=== PATIENT | male | born 1955 | race African-American/Black ===

== ENCOUNTER 2018-09-12 13:16 | Inpatient (IN) | payer MEDICAID ==
[~2018-09-12] VITALS: Ht 182.9 cm; Wt 99.8 kg
[~2018-09-12 13:16] MED LIST: [UNRECOGNIZED DRUG - REMARK]
[2018-09-12] MEDS ORDERED: METHYLPREDNISOLONE SOD SUCC 125 MG/2 ML VIAL IV STA (13:54)
[2018-09-12] MEDS ORDERED: IPRATROPIUM BROMIDE (0.02%) 0.5MG/2.5ML NEB HHN STA (13:54)
[2018-09-12] MEDS ORDERED: CEFTRIAXONE 1 G PREMIX 50 ML IV ONE (14:00)
[2018-09-12] MEDS ORDERED: SODIUM CHLORIDE 0.9% 1000ML BAG (SEPSIS BOLUS) IV ONE (14:00)
[2018-09-12] MEDS: ALBUTEROL (0.083%) 2.5MG/3ML NEB HHN SCH (14:20)
[2018-09-12 14:21] LABS: BASOPHILS % 0.7 % (0.0-2.0); HEMOGLOBIN. 11.1 g/dL (14.0-18.0); LYMPHOCYTES % 10.6 % (20.0-50.0); MEAN CORPUSCULAR HEMOGLOBIN 27.1 pg (28.0-32.0); MEAN CORPUSCULAR VOLUME 80.5 fL (80.0-94.0); MEAN PLATELET VOLUME 7.9 fl (7.4-10.4); MONOCYTES % 11.9 % (2.0-8.0); NEUTROPHILS % 76.8 % (40.0-76.0); PLATELET 258 x1000/uL (130-400); RED BLOOD CELL COUNT 4.09 mill/uL (4.7-6.1); RED CELL DISTRIBUTION WIDTH 15.8 % (11.6-14.6)
[2018-09-12] MEDS ORDERED: ALBUTEROL (0.5%) 2.5MG/0.5ML NEB HHN ONE (14:21)
[2018-09-12 14:27] LABS: PROTHROMBIN TIME 9.9 sec (9.6-11.0)
[2018-09-12 14:31] LABS: BG BASE EXCESS 4.8 mmol/L (-2.0-2.0); BG CARBOXYHEMOGLOBIN 0.3 % (0.5-1.5); BG DEOXYHEMOGLOBIN 11.1 % (0.0-5.0); BG FRACTION INSPIRED OXYGEN 40; BG HCO3 ACT 27.8 mmol/L (22.0-26.0); BG METHEMOGLOBIN 0.6 % (0.0-1.5); BG OXYGEN SATURATION 88.8 % (92.0-98.5); BG PCO2 35.7 mmHg (35.0-45.0); BG PO2 53.1 mmHg (75.0-100.0); BG SAMPLE SITE RIGHT RADIAL; BG VENT MODE NASAL CANNULA
[2018-09-12 14:41] LABS: CHLORIDE 90 mEq/L (98-107)
[2018-09-12] MEDS ORDERED: HYDROCODONE/ACETAMINOPHEN 5/325MG TABLET PO PRN (17:15)
[2018-09-12] MEDS ORDERED: AZITHROMYCIN 500 MG in DEXT 5% WATER 250 ML IV SCH ×2 (17:15→20:00)
[2018-09-12] MEDS ORDERED: IPRATROPIUM/ALBUTEROL 0.5-3(2.5)MG/3ML NEB INH PRN (17:15)
[2018-09-12] MEDS ORDERED: ACETAMINOPHEN 325MG TABLET PO PRN (17:15)
[2018-09-12] MEDS ORDERED: DIPHENHYDRAMINE 50MG/ML VIAL IV PRN (17:15)
[2018-09-12] MEDS ORDERED: GUAIFENESIN 200MG/10ML SUGAR FREE UDC PO PRN (17:15)
[2018-09-12] MEDS ORDERED: LEVOFLOXACIN 500MG PREMIX 100 ML IV SCH (17:15)
[2018-09-12] MEDS ORDERED: ONDANSETRON HCL 4MG/2ML INJ IV PRN (17:15)
[2018-09-12] MEDS ORDERED: MAGNESIUM/ALUMINUM HYDROXIDE/SIMETHICONE 30ML UDC PO PRN (17:15)
[2018-09-12] MEDS ORDERED: DOCUSATE SODIUM 100MG CAPSULE PO PRN (17:15)
[2018-09-12 17:34] LABS: PHOSPHORUS 2.6 mg/dL (2.5-4.9)
[2018-09-12 18:00] LABS: HEPATITIS B SURFACE ANTIGEN NEGATIVE
[2018-09-12 18:30] LABS: HEPATITIS A AB IGM NEGATIVE (NEGATIVE)
[2018-09-12 20:45] LABS: CLARITY URINE CLEAR (CLEAR); COLOR URINE YELLOW (YELLOW); KETONES URINE NEGATIVE (NEGATIVE); LEUKOCYTE ESTERASE URINE NEGATIVE (NEGATIVE); NITRITE URINE NEGATIVE (NEGATIVE); OCCULT BLOOD URINE TRACE (NEGATIVE); PROTEIN URINE 1+ (NEGATIVE)
[2018-09-12 22:41] VITALS: BP 123/69
[2018-09-12 22:49] VITALS: BP 123/69
[2018-09-12] MEDS ORDERED: DEXTROSE 50% WATER 50ML SYRINGE IV PRN (23:15)
[2018-09-12] MEDS ORDERED: HYDR25TA PO (23:18)
[2018-09-12] MEDS ORDERED: ATEN50TA PO (23:18)
[2018-09-12] MEDS ORDERED: DIVA500T3 PO (23:37)
[2018-09-12] MEDS ORDERED: ALBU18HF2 IH (23:37)
[2018-09-12] MEDS ORDERED: BENA40TA9 PO (23:37)
[2018-09-12] MEDS ORDERED: BENA10TA10 PO (23:37)
[2018-09-12] MEDS ORDERED: FENO50CA4 PO (23:37)
[2018-09-12] MEDS ORDERED: ARIP30TA2 PO (23:37)
[2018-09-12] MEDS ORDERED: ABIL5 PO (23:37)
[2018-09-12] MEDS ORDERED: METF-415 PO (23:37)
[2018-09-12] MEDS ORDERED: LORA10CA PO (23:37)
[2018-09-12] MEDS ORDERED: AMLO5TAB88 PO (23:37)
[2018-09-12] MEDS ORDERED: TIOT18CA3 INH (23:38)
[2018-09-13 00:05] VITALS: BP 125/71
[2018-09-13 04:00] VITALS: BP 121/73
[2018-09-13 06:48] LABS: BASOPHILS % 0.2 % (0.0-2.0); EOSINOPHILS % 0.1 % (0.0-5.0); HEMATOCRIT. 34.1 % (42.0-52.0); HEMOGLOBIN. 11.5 g/dL (14.0-18.0); LYMPHOCYTES % 8.3 % (20.0-50.0); MEAN CORPUSCULAR HEMOGLOBIN 27.1 pg (28.0-32.0); MEAN CORPUSCULAR VOLUME 80.8 fL (80.0-94.0); MONOCYTES % 7.5 % (2.0-8.0); NEUTROPHILS % 83.9 % (40.0-76.0); PLATELET 258 x1000/uL (130-400); RED BLOOD CELL COUNT 4.22 mill/uL (4.7-6.1); RED CELL DISTRIBUTION WIDTH 16.2 % (11.6-14.6)
[2018-09-13 07:01] LABS: CHLORIDE 94 mEq/L (98-107)
[2018-09-13 07:16] LABS: LDL CHOLESTEROL 40 mg/dL (5-100)
[2018-09-13 07:18] LABS: HDL CHOLESTEROL 30 mg/dL (40-59)
[2018-09-13 07:32] LABS: CREATINE KINASE 1383 IU/L (39-308)
[2018-09-13 08:00] VITALS: BP 144/79
[2018-09-13] MEDS: BLOOD SUGAR DIAGNOSTIC STRIP TEST SCH ×4 (08:23→21:36)
[2018-09-13] MEDS: INSULIN LISPRO 100 UNITS/ML SUBCUT SCH ×4 (08:32→21:00)
[2018-09-13 12:00] VITALS: BP 117/58
[2018-09-13] MEDS ORDERED: SODIUM CHLORIDE 0.9% 1,000 ML IV SCH (13:15)
[2018-09-13] MEDS: GUAIFENESIN 600MG ER TABLET PO SCH ×2 (13:18→20:40)
[2018-09-13] MEDS: CEFTRIAXONE 1 G PREMIX 50 ML IV SCH (13:18)
[2018-09-13] MEDS: BUDESONIDE 0.5MG/2ML NEB HHN SCH ×2 (15:20→20:27)
[2018-09-13] MEDS: IPRATROPIUM/ALBUTEROL 0.5-3(2.5)MG/3ML NEB HHN SCH ×2 (15:20→20:27)
[2018-09-13 16:00] VITALS: BP 162/79
[2018-09-13] MEDS: NICOTINE 7MG PATCH TD SCH (16:30)
[2018-09-13] MEDS: BENAZEPRIL 10MG TABLET PO SCH (16:30)
[2018-09-13 20:00] VITALS: BP 98/65
[2018-09-13] MEDS: AZITHROMYCIN 500MG in DEXTROSE 5% WATER 250ML IV SCH (20:39)
[2018-09-13] MEDS: DIVALPROEX SODIUM 500MG ER TABLET PO SCH (20:40)
[2018-09-13] MEDS: ATENOLOL 50 MG TABLET PO SCH (20:41)
[2018-09-13] MEDS: AMLODIPINE 5MG TABLET PO SCH (20:41)
[2018-09-13 20:52] LABS: TOTAL IRON BINDING CAPACITY 304 ug/dL (250-450)
[2018-09-13 21:07] LABS: FOLIC ACID (FOLATE) SERUM 12.7 ng/mL (>5.38)
[2018-09-13 23:40] LABS: *AMPHETAMINES SCREEN URINE NEGATIVE (NEGATIVE); *BARBITURATES SCREEN URINE NEGATIVE (NEGATIVE); *BENZODIAZEPINES SCREEN URINE NEGATIVE (NEGATIVE); *COCAINE SCREEN URINE NEGATIVE (NEGATIVE); METHADONE URINE SCREEN NEGATIVE (NEGATIVE); OPIATES URINE SCREEN NEGATIVE (NEGATIVE); SODIUM URINE RANDOM 7 mEq/L
[2018-09-13 23:41] LABS: CANNABINOID URINE SCREEN NEGATIVE (NEGATIVE); PHENCYCLIDINE URINE SCREEN NEGATIVE (NEGATIVE)
[2018-09-14] VITALS: BP 128/56
[2018-09-14 04:00] VITALS: BP 128/78
[2018-09-14 05:31] LABS: HIV SCREEN 4G Non Reactive (Non Reactive)
[2018-09-14 06:24] LABS: BASOPHILS % 0.6 % (0.0-2.0); EOSINOPHILS % 0.6 % (0.0-5.0); HEMATOCRIT. 32.2 % (42.0-52.0); LYMPHOCYTES % 13.4 % (20.0-50.0); MEAN CORPUSCULAR HEMOGLOBIN 27.5 pg (28.0-32.0); MEAN CORPUSCULAR VOLUME 80.4 fL (80.0-94.0); MONOCYTES % 7.8 % (2.0-8.0); NEUTROPHILS % 77.6 % (40.0-76.0); PLATELET 287 x1000/uL (130-400); RED CELL DISTRIBUTION WIDTH 16.2 % (11.6-14.6)
[2018-09-14] MEDS: BLOOD SUGAR DIAGNOSTIC STRIP TEST SCH ×4 (06:24→20:48)
[2018-09-14 08:00] VITALS: BP 144/62
[2018-09-14] MEDS: NICOTINE 7MG PATCH TD SCH (08:00)
[2018-09-14] MEDS: ATENOLOL 50 MG TABLET PO SCH ×2 (08:00→20:48)
[2018-09-14] MEDS: GUAIFENESIN 600MG ER TABLET PO SCH ×2 (08:00→20:48)
[2018-09-14] MEDS: INSULIN LISPRO 100 UNITS/ML SUBCUT SCH ×4 (08:01→20:59)
[2018-09-14] MEDS: AMLODIPINE 5MG TABLET PO SCH ×2 (08:01→20:48)
[2018-09-14] MEDS: BUDESONIDE 0.5MG/2ML NEB HHN SCH ×2 (08:03→21:07)
[2018-09-14] MEDS: IPRATROPIUM/ALBUTEROL 0.5-3(2.5)MG/3ML NEB HHN SCH ×3 (08:04→21:07)
[2018-09-14 08:41] LABS: CHLORIDE 93 mEq/L (98-107)
[2018-09-14 08:47] LABS: PHOSPHORUS 2.1 mg/dL (2.5-4.9)
[2018-09-14 09:02] LABS: CREATINE KINASE 1186 IU/L (39-308)
[2018-09-14] MEDS ORDERED: SODIUM PHOS,M-BASIC-D-BASIC 15 MM in DEXT 5% WATER 245 ML IV NR (11:00)
[2018-09-14] MEDS: CEFTRIAXONE 1 G PREMIX 50 ML IV SCH (14:44)
[2018-09-14] MEDS: LACTULOSE 20G/30ML UDC PO SCH ×2 (14:44→20:48)
[2018-09-14 15:31] LABS: AMYLASE 115 IU/L (25-115)
[2018-09-14] MEDS: BENAZEPRIL 10MG TABLET PO SCH (17:08)
[2018-09-14 20:00] VITALS: BP 146/63
[2018-09-14] MEDS: AZITHROMYCIN 500MG in DEXTROSE 5% WATER 250ML IV SCH (20:47)
[2018-09-14] MEDS: DIVALPROEX SODIUM 500MG ER TABLET PO SCH (20:48)
[2018-09-15] VITALS: BP 147/61
[2018-09-15 04:00] VITALS: BP 130/68
[2018-09-15 06:08] LABS: CHLORIDE 95 mEq/L (98-107)
[2018-09-15 06:14] LABS: PHOSPHORUS 2.2 mg/dL (2.5-4.9)
[2018-09-15 06:20] LABS: BASOPHILS % 0.5 % (0.0-2.0); EOSINOPHILS % 0.5 % (0.0-5.0); HEMOGLOBIN. 11.1 g/dL (14.0-18.0); LYMPHOCYTES % 14.4 % (20.0-50.0); MEAN CORPUSCULAR HEMOGLOBIN 26.9 pg (28.0-32.0); MEAN CORPUSCULAR VOLUME 80.2 fL (80.0-94.0); MEAN PLATELET VOLUME 7.8 fl (7.4-10.4); MONOCYTES % 10.2 % (2.0-8.0); NEUTROPHILS % 74.4 % (40.0-76.0); PLATELET 361 x1000/uL (130-400); RED BLOOD CELL COUNT 4.12 mill/uL (4.7-6.1)
[2018-09-15] MEDS: BLOOD SUGAR DIAGNOSTIC STRIP TEST SCH ×4 (06:22→20:35)
[2018-09-15] MEDS: LACTULOSE 20G/30ML UDC PO SCH ×3 (06:22→21:02)
[2018-09-15 08:00] VITALS: BP 131/59
[2018-09-15] MEDS: INSULIN LISPRO 100 UNITS/ML SUBCUT SCH ×3 (08:10→20:35)
[2018-09-15] MEDS: AMLODIPINE 5MG TABLET PO SCH ×2 (08:25→20:36)
[2018-09-15] MEDS: GUAIFENESIN 600MG ER TABLET PO SCH ×2 (08:25→20:36)
[2018-09-15] MEDS: NICOTINE 7MG PATCH TD SCH (08:25)
[2018-09-15] MEDS: ATENOLOL 50 MG TABLET PO SCH ×2 (08:26→20:36)
[2018-09-15] MEDS: IPRATROPIUM/ALBUTEROL 0.5-3(2.5)MG/3ML NEB HHN SCH ×4 (08:30→12:50)
[2018-09-15] MEDS: BUDESONIDE 0.5MG/2ML NEB HHN SCH (08:59)
[2018-09-15 12:00] VITALS: BP 138/71
[2018-09-15] MEDS ORDERED: POTASSIUM CHLORIDE 20MEQ/PACKET PO ONE (12:15)
[2018-09-15] MEDS: CEFTRIAXONE 1 G PREMIX 50 ML IV SCH (13:11)
[2018-09-15] MEDS ORDERED: POTASSIUM PHOS,M-BASIC-D-BASIC 30 MMOL in SODIUM CHLORIDE 0.9% 500 ML IV NR (14:30)
[2018-09-15] MEDS ORDERED: IOHEXOL-300 100 ML BOTTLE ONE (15:42)
[2018-09-15 16:10] VITALS: BP 156/75
[2018-09-15] MEDS: BENAZEPRIL 10MG TABLET PO SCH (16:54)
[2018-09-15 20:00] VITALS: BP 158/85
[2018-09-15] MEDS: DIVALPROEX SODIUM 500MG ER TABLET PO SCH (20:36)
[2018-09-15] MEDS: AZITHROMYCIN 500 MG TABLET PO SCH (20:36)
[2018-09-16] VITALS: BP 169/72
[2018-09-16] MEDS: CLONIDINE 0.1MG TABLET PO PRN (01:09)
[2018-09-16] MEDS: BUDESONIDE 0.5MG/2ML NEB HHN SCH (01:20)
[2018-09-16 04:00] VITALS: BP 140/89
[2018-09-16] MEDS: BLOOD SUGAR DIAGNOSTIC STRIP TEST SCH ×4 (05:51→21:20)
[2018-09-16] MEDS: LACTULOSE 20G/30ML UDC PO SCH ×3 (06:24→21:19)
[2018-09-16 07:34] LABS: BASOPHILS % 0.5 % (0.0-2.0); EOSINOPHILS % 2.4 % (0.0-5.0); HEMATOCRIT. 32.8 % (42.0-52.0); HEMOGLOBIN. 11.2 g/dL (14.0-18.0); LYMPHOCYTES % 13.6 % (20.0-50.0); MEAN CORPUSCULAR HEMOGLOBIN 27.4 pg (28.0-32.0); MEAN CORPUSCULAR VOLUME 80.1 fL (80.0-94.0); MEAN PLATELET VOLUME 7.6 fl (7.4-10.4); MONOCYTES % 7.5 % (2.0-8.0); PLATELET 440 x1000/uL (130-400); RED CELL DISTRIBUTION WIDTH 16.1 % (11.6-14.6)
[2018-09-16] MEDS: INSULIN LISPRO 100 UNITS/ML SUBCUT SCH ×4 (07:48→21:00)
[2018-09-16 07:57] LABS: CHLORIDE 99 mEq/L (98-107)
[2018-09-16 08:00] VITALS: BP 144/76
[2018-09-16 08:14] LABS: PHOSPHORUS 3.3 mg/dL (2.5-4.9)
[2018-09-16] MEDS: AMLODIPINE 5MG TABLET PO SCH ×2 (08:24→21:19)
[2018-09-16] MEDS: GUAIFENESIN 600MG ER TABLET PO SCH ×2 (08:24→21:19)
[2018-09-16] MEDS: ATENOLOL 50 MG TABLET PO SCH ×2 (08:25→21:19)
[2018-09-16] MEDS: NICOTINE 7MG PATCH TD SCH (08:25)
[2018-09-16 11:34] LABS: T4 FREE 1.2 ng/dL (0.76-1.46)
[2018-09-16 12:00] VITALS: BP 145/78
[2018-09-16] MEDS: CEFTRIAXONE 1 G PREMIX 50 ML IV SCH (13:10)
[2018-09-16] MEDS: IPRATROPIUM/ALBUTEROL 0.5-3(2.5)MG/3ML NEB HHN SCH ×2 (15:59→20:17)
[2018-09-16 16:00] VITALS: BP 155/82
[2018-09-16] MEDS: BENAZEPRIL 10MG TABLET PO SCH (16:37)
[2018-09-16 20:00] VITALS: BP 150/80
[2018-09-16] MEDS: AZITHROMYCIN 500 MG TABLET PO SCH (21:19)
[2018-09-16] MEDS: DIVALPROEX SODIUM 500MG ER TABLET PO SCH (21:19)
[2018-09-17] VITALS: BP 163/76
[2018-09-17] MEDS: CLONIDINE 0.1MG TABLET PO PRN (00:02)
[2018-09-17] MEDS: IPRATROPIUM/ALBUTEROL 0.5-3(2.5)MG/3ML NEB HHN SCH ×4 (01:20→20:15)
[2018-09-17 04:00] VITALS: BP 160/83
[2018-09-17] MEDS: LACTULOSE 20G/30ML UDC PO SCH ×3 (05:35→22:00)
[2018-09-17] MEDS: BLOOD SUGAR DIAGNOSTIC STRIP TEST SCH ×4 (05:36→20:43)
[2018-09-17 08:00] VITALS: BP 156/79
[2018-09-17] MEDS: INSULIN LISPRO 100 UNITS/ML SUBCUT SCH ×4 (08:10→20:43)
[2018-09-17] MEDS: AMLODIPINE 5MG TABLET PO SCH ×2 (08:59→20:41)
[2018-09-17] MEDS: GUAIFENESIN 600MG ER TABLET PO SCH ×2 (08:59→20:40)
[2018-09-17] MEDS: ATENOLOL 50 MG TABLET PO SCH ×2 (08:59→20:42)
[2018-09-17] MEDS: NICOTINE 7MG PATCH TD SCH (09:00)
[2018-09-17 12:00] VITALS: BP 136/68
[2018-09-17] MEDS: BUDESONIDE 0.5MG/2ML NEB HHN SCH ×2 (13:52→20:15)
[2018-09-17] MEDS: CEFTRIAXONE 1 G PREMIX 50 ML IV SCH (14:45)
[2018-09-17 16:00] VITALS: BP 144/70
[2018-09-17 20:00] VITALS: BP 171/56
[2018-09-17] MEDS: AZITHROMYCIN 500 MG TABLET PO SCH (20:40)
[2018-09-17] MEDS: DIVALPROEX SODIUM 500MG ER TABLET PO SCH (20:40)
[2018-09-17] MEDS: BENAZEPRIL 10MG TABLET PO SCH (20:42)
[2018-09-18] VITALS: BP 147/81
[2018-09-18 04:00] VITALS: BP 171/81
[2018-09-18] MEDS: CLONIDINE 0.1MG TABLET PO PRN (06:18)
[2018-09-18] MEDS: LACTULOSE 20G/30ML UDC PO SCH ×3 (06:18→22:57)
[2018-09-18] MEDS: BLOOD SUGAR DIAGNOSTIC STRIP TEST SCH ×4 (06:19→20:59)
[2018-09-18 07:25] LABS: BASOPHILS % 0.7 % (0.0-2.0); EOSINOPHILS % 3.3 % (0.0-5.0); HEMATOCRIT. 35.9 % (42.0-52.0); LYMPHOCYTES % 15.5 % (20.0-50.0); MEAN CORPUSCULAR HEMOGLOBIN 26.8 pg (28.0-32.0); MEAN CORPUSCULAR VOLUME 80.3 fL (80.0-94.0); MEAN PLATELET VOLUME 7.3 fl (7.4-10.4); MONOCYTES % 9.2 % (2.0-8.0); NEUTROPHILS % 71.3 % (40.0-76.0); PLATELET 615 x1000/uL (130-400); RED BLOOD CELL COUNT 4.47 mill/uL (4.7-6.1)
[2018-09-18 07:47] LABS: CHLORIDE 101 mEq/L (98-107)
[2018-09-18] MEDS: INSULIN LISPRO 100 UNITS/ML SUBCUT SCH ×4 (08:10→20:59)
[2018-09-18] MEDS: IPRATROPIUM/ALBUTEROL 0.5-3(2.5)MG/3ML NEB HHN SCH ×3 (09:01→21:11)
[2018-09-18] MEDS: BUDESONIDE 0.5MG/2ML NEB HHN SCH ×2 (09:01→21:11)
[2018-09-18] MEDS: GUAIFENESIN 600MG ER TABLET PO SCH ×2 (09:23→20:47)
[2018-09-18 09:24] LABS: CREATINE KINASE 154 IU/L (39-308)
[2018-09-18] MEDS: BENAZEPRIL 10MG TABLET PO SCH ×2 (09:24→20:49)
[2018-09-18] MEDS: ATENOLOL 50 MG TABLET PO SCH ×2 (09:24→20:48)
[2018-09-18] MEDS: AMLODIPINE 5MG TABLET PO SCH ×2 (09:24→20:48)
[2018-09-18] MEDS: NICOTINE 7MG PATCH TD SCH (09:25)
[2018-09-18 12:00] VITALS: BP 124/69
[2018-09-18] MEDS: HYDRALAZINE HCL 25MG TABLET PO SCH ×2 (15:01→22:57)
[2018-09-18] MEDS: CEFTRIAXONE 1 G PREMIX 50 ML IV SCH (15:02)
[2018-09-18 16:00] VITALS: BP 139/79
[2018-09-18 20:00] VITALS: BP 166/85
[2018-09-18] MEDS: AZITHROMYCIN 500 MG TABLET PO SCH (20:47)
[2018-09-18] MEDS: DIVALPROEX SODIUM 500MG ER TABLET PO SCH (20:48)
[2018-09-19] VITALS: BP 143/77
[2018-09-19 04:00] VITALS: BP 152/86
[2018-09-19] MEDS: LACTULOSE 20G/30ML UDC PO SCH ×2 (05:47→13:24)
[2018-09-19] MEDS: BLOOD SUGAR DIAGNOSTIC STRIP TEST SCH ×3 (05:48→17:40)
[2018-09-19] MEDS: HYDRALAZINE HCL 25MG TABLET PO SCH ×2 (05:48→13:25)
[2018-09-19 07:07] LABS: BASOPHILS % 0.7 % (0.0-2.0); HEMATOCRIT. 36.6 % (42.0-52.0); HEMOGLOBIN. 12.1 g/dL (14.0-18.0); LYMPHOCYTES % 16.5 % (20.0-50.0); MEAN CORPUSCULAR HEMOGLOBIN 26.8 pg (28.0-32.0); MEAN PLATELET VOLUME 7.2 fl (7.4-10.4); MONOCYTES % 7.5 % (2.0-8.0); NEUTROPHILS % 72.3 % (40.0-76.0); PLATELET 642 x1000/uL (130-400); RED BLOOD CELL COUNT 4.52 mill/uL (4.7-6.1); RED CELL DISTRIBUTION WIDTH 15.9 % (11.6-14.6)
[2018-09-19 07:31] LABS: CHLORIDE 102 mEq/L (98-107)
[2018-09-19] MEDS: IPRATROPIUM/ALBUTEROL 0.5-3(2.5)MG/3ML NEB HHN SCH ×2 (07:53→13:32)
[2018-09-19] MEDS: BUDESONIDE 0.5MG/2ML NEB HHN SCH (07:53)
[2018-09-19 08:00] VITALS: BP 132/76
[2018-09-19 08:05] LABS: PHOSPHORUS 4.3 mg/dL (2.5-4.9)
[2018-09-19] MEDS: INSULIN LISPRO 100 UNITS/ML SUBCUT SCH ×3 (08:10→18:10)
[2018-09-19] MEDS: NICOTINE 7MG PATCH TD SCH (09:01)
[2018-09-19] MEDS: GUAIFENESIN 600MG ER TABLET PO SCH (09:02)
[2018-09-19] MEDS: AMLODIPINE 5MG TABLET PO SCH (09:02)
[2018-09-19] MEDS: ATENOLOL 50 MG TABLET PO SCH (09:02)
[2018-09-19] MEDS: BENAZEPRIL 10MG TABLET PO SCH (09:05)
[2018-09-19 12:00] VITALS: BP 147/75
[2018-09-19] MEDS: CEFTRIAXONE 1 G PREMIX 50 ML IV SCH (13:24)
[2018-09-19 16:00] VITALS: BP 156/87
[2018-09-19 16:11] VITALS: BP 132/70
== END 2018-09-19 18:50 | disposition home or self-care (01) | DRG 720 ==
LOC: ER 13:24 → 7WST 18:07 → EDBEDREQSVC 18:15 → EDBEDREQ 18:15 → ENRESERV 21:26
PROVIDERS: ADMIT Internal Medicine; ATTEND Internal Medicine
PROC: 4A00X4Z Measurement of Central Nervous Electrical Activity, External Approach (ICD-10-PCS; principal; 2018-09-17)
DX: A41.9 Sepsis, unspecified organism (principal); J96.01 Acute respiratory failure with hypoxia; E43 Unspecified severe protein-calorie malnutrition; N17.9 Acute kidney failure, unspecified; E87.3 Alkalosis; G92 Toxic encephalopathy; H47.10 Unspecified papilledema; M62.82 Rhabdomyolysis; J18.9 Pneumonia, unspecified organism; R13.10 Dysphagia, unspecified; C61 Malignant neoplasm of prostate; E11.65 Type 2 diabetes mellitus with hyperglycemia; D64.9 Anemia, unspecified; E87.1 Hypo-osmolality and hyponatremia; I10 Essential (primary) hypertension; J44.0 Chronic obstructive pulmonary disease with (acute) lower respiratory infection; E87.6 Hypokalemia; D63.8 Anemia in other chronic diseases classified elsewhere; J44.1 Chronic obstructive pulmonary disease with (acute) exacerbation; R16.0 Hepatomegaly, not elsewhere classified; E11.319 Type 2 diabetes mellitus with unspecified diabetic retinopathy without macular edema; F17.210 Nicotine dependence, cigarettes, uncomplicated; F20.9 Schizophrenia, unspecified; H25.10 Age-related nuclear cataract, unspecified eye; K76.0 Fatty (change of) liver, not elsewhere classified; N40.0 Benign prostatic hyperplasia without lower urinary tract symptoms; Z82.49 Family history of ischemic heart disease and other diseases of the circulatory system; Z83.3 Family history of diabetes mellitus; Z86.73 Personal history of transient ischemic attack (TIA), and cerebral infarction without residual deficits; Z90.49 Acquired absence of other specified parts of digestive tract; Z99.81 Dependence on supplemental oxygen; Z79.84 Long term (current) use of oral hypoglycemic drugs; Z79.899 Other long term (current) drug therapy; Z71.6 Tobacco abuse counseling; Z68.29 Body mass index [BMI] 29.0-29.9, adult
CPT/HCPCS: 36415; 36600; 70543; 70551; 71045; 74177; 76700; 80048; 80061; 80076; 80305; 82140; 82150; 82375; 82533; 82550; 82553; 82607; 82728; 82746; 82805; 82962; 83036; 83540; 83550; 83605; 83735; 83930; 83935; 84100; 84145; 84300; 84439; 84443; 84481; 84484; 86705; 86709; 86803; 87340; 87389; 87804; 92610; 93005; 93970; 94640; 96374; 96375; 97162; 97166; 99285; C1893; J0456; J0696; J1815; J1956; J2930; J3490; J7030; J7040; J7050; J7060; J7611; J7620; J7626; Q9967

== ENCOUNTER → 2022-04-22 | Day surgery (SDC) | payer MEDICARE, MEDICAID ==
[~2022-04-22] VITALS: Ht 182.9 cm; Wt 108.0 kg
[~2022-04-22] MED LIST changes: +ABIL5 PO; +ALBU18HF2 IH; +AMLO5TAB88 PO; +ARIP30TA2 PO; +ASPI-1497 PO; +ATEN50TA PO; +ATOR20TA PO; +BENA10TA74 PO; +BENA40TA91 PO; +CARV25TA47 PO; +DEXAMETHASONE 4MG/ML 1ML VIAL ONE; +DIVA500T3 PO; +DOCU250C19 PO; +FENO50CA4 PO; +FENTANYL CITRATE/PF 50MCG/ML 2ML VIAL ONE; +HYDR100T26 PO; +HYDR25TA PO; +LIDOCAINE HCL 1% 20ML VIAL (Pyxis) INJ ONE; +LORA10CA PO; +LOSA100T32 PO; +METF-415 PO; +METF-416 PO; +MIDAZOLAM HCL 2 MG/2 ML VIAL ONE; +MONT-39 PO; +ONDANSETRON HCL 4MG/2ML INJ ONE; +PHENYLEPHRINE HCL 10 MG/ML 1ML (IV VIAL) IV ONE; +PROPOFOL 200MG/20ML VIAL IV ONE; +SODIUM CHLORIDE 0.9% 1,000 ML IV SCH; +TAMS-11 PO; +TIOT18CA3 INH; -[UNRECOGNIZED DRUG - REMARK]
[2022-04-22 10:02] LABS: HEMATOCRIT. 37.9 % (42.0-52.0); HEMOGLOBIN. 12.3 g/dL (14.0-18.0); MEAN CORPUSCULAR HEMOGLOBIN 26.3 pg (28.0-32.0); MEAN CORPUSCULAR VOLUME 81.2 fL (80.0-94.0); MEAN PLATELET VOLUME 7.9 fl (7.4-10.4); PLATELET 344 x1000/uL (130-400); RED BLOOD CELL COUNT 4.67 mill/uL (4.7-6.1); RED CELL DISTRIBUTION WIDTH 16.7 % (11.6-14.6)
[2022-04-22 10:09] LABS: PARTIAL THROMBOPLASTIN TIME 31.5 sec (23.4-31.0); PROTHROMBIN TIME 11.1 sec (9.6-11.0)
[2022-04-22 10:15] LABS: CHLORIDE 98 mEq/L (98-107)
[2022-04-22 12:16] LABS: PLATELET ESTIMATE NORMAL
== END | disposition home or self-care (01) ==
LOC: OR 08:23
PROVIDERS: ATTEND Internal Medicine Gastroenterology
DX: K59.00 Constipation, unspecified (principal); K64.8 Other hemorrhoids; K63.89 Other specified diseases of intestine; R10.13 Epigastric pain; K44.9 Diaphragmatic hernia without obstruction or gangrene; K29.80 Duodenitis without bleeding; K29.50 Unspecified chronic gastritis without bleeding; K31.89 Other diseases of stomach and duodenum; D12.3 Benign neoplasm of transverse colon; J43.9 Emphysema, unspecified; I10 Essential (primary) hypertension; E78.5 Hyperlipidemia, unspecified; F17.210 Nicotine dependence, cigarettes, uncomplicated; Z79.82 Long term (current) use of aspirin; Z79.84 Long term (current) use of oral hypoglycemic drugs; Z79.899 Other long term (current) drug therapy; Z98.890 Other specified postprocedural states; Z20.822 Contact with and (suspected) exposure to COVID-19
CPT/HCPCS: 36415; 43239; 45380; 80048; 82962; 85025; 85610; 85730; 87426; 88305; 93005; C9803; J1100; J2250; J2370; J2405; J2704; J3010; J3490